=== PATIENT | female | born 1940 | race Caucasian/White ===

== ENCOUNTER 2017-08-13 09:55 | Emergency (ER) | payer MEDICARE, OTHER | END 2017-08-13 12:11 | disposition home or self-care (01) | LOC: FTE 09:55 | DX: L98.8 Other specified disorders of the skin and subcutaneous tissue (principal); E11.9 Type 2 diabetes mellitus without complications; I10 Essential (primary) hypertension; Z79.82 Long term (current) use of aspirin; Z79.84 Long term (current) use of oral hypoglycemic drugs; Z98.61 Coronary angioplasty status | CPT/HCPCS: 99283 ==

== ENCOUNTER 2017-12-30 14:21 | Inpatient (IN) | payer MEDICARE, OTHER ==
[2017-12-30 15:02] LABS: ADD MAN DIFF? NO
[2017-12-30] MEDS: PANTOPRAZOLE 40 MG INJ IV (15:06)
[2017-12-30] MEDS: SOD CHLORIDE 0.9% 1,000 ML IV (15:06)
[2017-12-30] MEDS: FAMOTIDINE 20 MG INJ IV (15:06)
[2017-12-30] MEDS: ONDANSETRON 4 MG INJ IV (15:06)
[2017-12-30 15:07] LABS: WHITE BLOOD COUNT 6.2 10^3/ul (4.8-10.8)
[2017-12-30 15:07] LABS: BASOPHILS % 0.5 % (0.0-2.0); EOSINOPHILS # 0.1 10^3/ul (0.0-0.5); EOSINOPHILS % 1.8 % (0.0-7.0); HEMATOCRIT 36.6 % (37.0-47.0); HEMOGLOBIN 12.1 g/dl (12.0-16.0); LYMPHOCYTES # 1.5 10^3/ul (0.8-2.9); LYMPHOCYTES % 23.7 % (15.0-51.0); MEAN CORPUSCULAR HEMOGLOBIN 28.9 pg (29.0-33.0); MEAN CORPUSCULAR HGB CONC 33.1 g/dl (32.0-37.0); MEAN CORPUSCULAR VOLUME 87.6 fl (82.0-101.0); MEAN PLATELET VOLUME 9.7 fl (7.4-10.4); MONOCYTE # 0.7 10^3/ul (0.3-0.9); MONOCYTES % 10.7 % (0.0-11.0); NEUTROPHIL # 3.9 10^3/ul (1.6-7.5); NEUTROPHILS % 63.1 % (39.0-77.0); PLATELET COUNT 204 10^3/UL (140-415); RED BLOOD COUNT 4.18 10^6/ul (4.20-5.40); RED CELL DISTRIBUTION WIDTH 14.9 % (11.5-14.5)
[2017-12-30 15:13] LABS: ADD UMIC NO; UR ASCORBIC ACID NEGATIVE (NEGATIVE); UR BILIRUBIN (Dip) NEGATIVE (NEGATIVE); UR BLOOD (Dip) NEGATIVE (NEGATIVE); UR CLARITY CLEAR (CLEAR); UR COLOR STRAW (YELLOW); UR GLUCOSE (Dip) NEGATIVE (NEGATIVE); UR KETONES (Dip) NEGATIVE (NEGATIVE); UR LEUKOCYTE ESTERASE (Dip) NEGATIVE Leu/ul (NEGATIVE); UR NITRITE (Dip) NEGATIVE (NEGATIVE); UR SPECIFIC GRAVITY (Dip) 1.002 (1.003-1.030); UR TOTAL PROTEIN (Dip) NEGATIVE (NEGATIVE); UR UROBILINOGEN (Dip) NEGATIVE (NEGATIVE)
[2017-12-30 15:22] LABS: INR 1.74; PARTIAL THROMBOPLASTIN TIME 38.9 Sec (23.0-35.0); PROTIME 20.7 Sec (11.9-14.9); PT RATIO 1.6
[2017-12-30 15:24] LABS: ALANINE AMINOTRANSFERASE 20 IU/L (13-69); ALBUMIN/GLOBULIN RATIO 1.08; ALKALINE PHOSPHATASE 96 IU/L (42-121); AMYLASE 43 U/L (11-123); ANION GAP 11 (8-16); ASPARTATE AMINO TRANSFERASE 43 IU/L (15-46); BILIRUBIN,INDIRECT 1.2 mg/dl (0-1.1); BILIRUBIN,TOTAL 1.2 mg/dl (0.2-1.3); BLOOD UREA NITROGEN 10 mg/dl (7-20); CALCIUM 9.4 mg/dl (8.4-10.2); CARBON DIOXIDE 30 mmol/L (21-31); CHLORIDE 101 mmol/L (97-110); CREATININE 0.58 mg/dl (0.44-1.00); GLUCOSE 121 mg/dl (70-220); LIPASE 48 U/L (23-300); POTASSIUM 3.8 mmol/L (3.5-5.1); SODIUM 138 mmol/L (135-144); TOTAL PROTEIN 7.7 g/dl (6.1-8.1)
[2017-12-30] MEDS: DILTIAZEM 25 MG INJ IV (15:25)
[2017-12-30] MEDS: PANTOPRAZOLE IV 80 MG in SOD CHLORIDE 0.9% 100 ML IV (15:25)
[2017-12-30 15:36] LABS: TROPONIN-I < 0.012 ng/ml (0.000-0.120)
[2017-12-30] MEDS: DILTIAZEM-D5W 125MG/125ML DRIP 125 ML IV (17:25)
[2017-12-30] MEDS: ACETAMINOPHEN 325 MG TAB PO (17:57)
[2017-12-30] MEDS ORDERED: traMADol 50 MG TAB PO (18:00)
[2017-12-30] MEDS ORDERED: ONDANSETRON 4 MG INJ IV (18:00)
[2017-12-30] MEDS ORDERED: NACL 0.9% 3 ML SYG IV (18:00)
[2017-12-30] MEDS: DEXTROSE 5%-0.45% NACL 1,000 ML IV (19:36)
[2017-12-30] MEDS: METOPROLOL 50 MG TAB PO (20:18)
[2017-12-30 20:58] LABS: ADD MAN DIFF? NO
[2017-12-30 21:04] LABS: BASOPHILS % 0.3 % (0.0-2.0); EOSINOPHILS # 0.1 10^3/ul (0.0-0.5); HEMATOCRIT 37.8 % (37.0-47.0); HEMOGLOBIN 12.5 g/dl (12.0-16.0); LYMPHOCYTES # 1.8 10^3/ul (0.8-2.9); MEAN CORPUSCULAR HEMOGLOBIN 29.1 pg (29.0-33.0); MEAN CORPUSCULAR HGB CONC 33.1 g/dl (32.0-37.0); MEAN CORPUSCULAR VOLUME 88.1 fl (82.0-101.0); MEAN PLATELET VOLUME 9.9 fl (7.4-10.4); MONOCYTE # 0.6 10^3/ul (0.3-0.9); MONOCYTES % 9.1 % (0.0-11.0); NEUTROPHIL # 3.8 10^3/ul (1.6-7.5); NEUTROPHILS % 60.4 % (39.0-77.0); PLATELET COUNT 201 10^3/UL (140-415); RED BLOOD COUNT 4.29 10^6/ul (4.20-5.40)
[2017-12-30 21:04] LABS: WHITE BLOOD COUNT 6.4 10^3/ul (4.8-10.8)
[2017-12-31 05:10] LABS: ADD MAN DIFF? NO
[2017-12-31 05:11] LABS: BASOPHILS % 0.6 % (0.0-2.0); EOSINOPHILS # 0.2 10^3/ul (0.0-0.5); HEMATOCRIT 34.7 % (37.0-47.0); HEMOGLOBIN 11.3 g/dl (12.0-16.0); LYMPHOCYTES # 1.2 10^3/ul (0.8-2.9); LYMPHOCYTES % 22.3 % (15.0-51.0); MEAN CORPUSCULAR HEMOGLOBIN 28.9 pg (29.0-33.0); MEAN CORPUSCULAR HGB CONC 32.6 g/dl (32.0-37.0); MEAN CORPUSCULAR VOLUME 88.7 fl (82.0-101.0); MONOCYTE # 0.5 10^3/ul (0.3-0.9); NEUTROPHIL # 3.5 10^3/ul (1.6-7.5); NEUTROPHILS % 64.9 % (39.0-77.0); PLATELET COUNT 189 10^3/UL (140-415); RED BLOOD COUNT 3.91 10^6/ul (4.20-5.40); RED CELL DISTRIBUTION WIDTH 15.3 % (11.5-14.5)
[2017-12-31 05:11] LABS: WHITE BLOOD COUNT 5.3 10^3/ul (4.8-10.8)
[2017-12-31 05:45] LABS: ALANINE AMINOTRANSFERASE 31 IU/L (13-69); ALBUMIN 2.8 g/dl (3.3-4.9); ALBUMIN/GLOBULIN RATIO 0.82; ALKALINE PHOSPHATASE 68 IU/L (42-121); ANION GAP 10 (8-16); ASPARTATE AMINO TRANSFERASE 35 IU/L (15-46); BILIRUBIN,INDIRECT 1.6 mg/dl (0-1.1); BILIRUBIN,TOTAL 1.6 mg/dl (0.2-1.3); BLOOD UREA NITROGEN 8 mg/dl (7-20); CALCIUM 8.8 mg/dl (8.4-10.2); CARBON DIOXIDE 31 mmol/L (21-31); CHLORIDE 105 mmol/L (97-110); CREATININE 0.64 mg/dl (0.44-1.00); GLUCOSE 129 mg/dl (70-220); MAGNESIUM 1.8 mg/dl (1.7-2.5); PHOSPHORUS 3.7 mg/dl (2.5-4.9); POTASSIUM 3.7 mmol/L (3.5-5.1); SODIUM 142 mmol/L (135-144); TOTAL PROTEIN 6.2 g/dl (6.1-8.1)
[2017-12-31 06:05] LABS: HEMOGLOBIN A1C 6.5 % (0-5.9)
[2017-12-31 06:09] LABS: THYROID STIMULATING HORMONE 0.689 MIU/L (0.465-4.680)
[2017-12-31] MEDS: DEXTROSE 5%-0.45% NACL 1,000 ML IV ×2 (07:12→20:32)
[2017-12-31] MEDS: ACETAMINOPHEN 325 MG TAB PO (08:40)
[2017-12-31] MEDS: METOPROLOL 50 MG TAB PO ×2 (08:40→20:42)
[2017-12-31] MEDS: HYDROCHLOROTHIAZIDE 12.5 MG CAP PO (08:41)
[2017-12-31] MEDS: LOSARTAN 50 MG TAB PO (08:41)
[2017-12-31] MEDS: ATORVASTATIN 40 MG TAB PO (08:42)
[2017-12-31 14:46] LABS: PROTIME 24.1 Sec (11.9-14.9); PT RATIO 1.9
[2018-01-01] MEDS ORDERED: GLUCOSE GEL 15 GRAM TUBE BUCCAL (04:30)
[2018-01-01] MEDS ORDERED: GLUCOSE GEL 15 GRAM TUBE PO ×2 (04:30)
[2018-01-01] MEDS ORDERED: DEXTROSE 50% 50 ML SYRINGE IV ×2 (04:30)
[2018-01-01] MEDS ORDERED: GLUCAGON 1 MG INJ IM (04:30)
[2018-01-01 05:36] LABS: ADD MAN DIFF? NO
[2018-01-01 05:46] LABS: BASOPHILS % 0.3 % (0.0-2.0); EOSINOPHILS # 0.2 10^3/ul (0.0-0.5); EOSINOPHILS % 3.7 % (0.0-7.0); HEMATOCRIT 35.2 % (37.0-47.0); HEMOGLOBIN 11.5 g/dl (12.0-16.0); LYMPHOCYTES # 1.3 10^3/ul (0.8-2.9); LYMPHOCYTES % 21.8 % (15.0-51.0); MEAN CORPUSCULAR HEMOGLOBIN 28.8 pg (29.0-33.0); MEAN CORPUSCULAR HGB CONC 32.7 g/dl (32.0-37.0); MEAN CORPUSCULAR VOLUME 88.2 fl (82.0-101.0); MEAN PLATELET VOLUME 10.2 fl (7.4-10.4); MONOCYTE # 0.7 10^3/ul (0.3-0.9); MONOCYTES % 11.2 % (0.0-11.0); NEUTROPHIL # 3.7 10^3/ul (1.6-7.5); NEUTROPHILS % 62.7 % (39.0-77.0); PLATELET COUNT 184 10^3/UL (140-415); RED BLOOD COUNT 3.99 10^6/ul (4.20-5.40)
[2018-01-01 05:46] LABS: WHITE BLOOD COUNT 5.9 10^3/ul (4.8-10.8)
[2018-01-01 05:59] LABS: INR 2.38; PROTIME 26.6 Sec (11.9-14.9); PT RATIO 2.1
[2018-01-01 06:00] LABS: PARTIAL THROMBOPLASTIN TIME 41.9 Sec (23.0-35.0)
[2018-01-01 06:04] LABS: MAGNESIUM 1.7 mg/dl (1.7-2.5)
[2018-01-01 06:04] LABS: PHOSPHORUS 3.6 mg/dl (2.5-4.9)
[2018-01-01] MEDS: PANTOPRAZOLE 40 MG INJ IV (07:02)
[2018-01-01] MEDS: HYDROCHLOROTHIAZIDE 12.5 MG CAP PO (08:29)
[2018-01-01] MEDS: ACETAMINOPHEN 325 MG TAB PO (08:29)
[2018-01-01] MEDS: ATORVASTATIN 40 MG TAB PO (08:30)
[2018-01-01] MEDS: METOPROLOL 50 MG TAB PO (08:30)
[2018-01-01] MEDS: LOSARTAN 50 MG TAB PO (08:30)
[2018-01-01] MEDS: INSULIN ASPART [NOVOLOG] 3 ML PEN SC (08:39)
[2018-01-01 12:00] LABS: CARBON DIOXIDE 28 mmol/L (21-31); CHLORIDE 106 mmol/L (97-110); POTASSIUM 3.5 mmol/L (3.5-5.1); SODIUM 140 mmol/L (135-144)
[2018-01-01 12:01] LABS: ALANINE AMINOTRANSFERASE 15 IU/L (13-69); ALBUMIN 3.3 g/dl (3.3-4.9); ALBUMIN/GLOBULIN RATIO 1.03; ALKALINE PHOSPHATASE 71 IU/L (42-121); ANION GAP 10 (8-16); ASPARTATE AMINO TRANSFERASE 41 IU/L (15-46); BILIRUBIN,INDIRECT 1.3 mg/dl (0-1.1); BILIRUBIN,TOTAL 1.3 mg/dl (0.2-1.3); BLOOD UREA NITROGEN 5 mg/dl (7-20); CALCIUM 8.4 mg/dl (8.4-10.2); CREATININE 0.55 mg/dl (0.44-1.00); GLUCOSE 126 mg/dl (70-220); TOTAL PROTEIN 6.5 g/dl (6.1-8.1)
[2018-01-02] MEDS ORDERED: ACCU-CHEK XX (02:00)
== END 2018-01-01 12:32 | disposition home or self-care (01) | DRG 379 ==
LOC: E/R 14:21 → 6WM 17:55
DX: K92.0 Hematemesis (principal); I48.91 Unspecified atrial fibrillation; E11.9 Type 2 diabetes mellitus without complications; I11.0 Hypertensive heart disease with heart failure; I50.9 Heart failure, unspecified; I35.0 Nonrheumatic aortic (valve) stenosis; Z95.2 Presence of prosthetic heart valve; E66.9 Obesity, unspecified; Z68.33 Body mass index [BMI] 33.0-33.9, adult; E78.5 Hyperlipidemia, unspecified; Z79.02 Long term (current) use of antithrombotics/antiplatelets
CPT/HCPCS: 36415; 71045; 74019; 80053; 81003; 82150; 82962; 83036; 83690; 83735; 84100; 84443; 84484; 85025; 85610; 85730; 86850; 86900; 86901; 93005; 96374; 96375; 99285-25